=== PATIENT | male | born 1995 | race Caucasian/White ===

== ENCOUNTER 2018-05-12 23:31 | Emergency (ER) | payer BC, SELFPAY ==
[2018-05-12 23:31] VITALS: BP 136/86; PULSE 111; RESP 16; TEMP 36.9; O2SAT 95; BMI 17.2
[2018-05-13] MEDS: Ondansetron 4 MG/2 ML Vial IV (00:14)
[2018-05-13] MEDS: 0.9% Normal Saline 1,000 ML 1000 ML IV (00:14)
[2018-05-13 00:33] LABS: Absolute Lymphocyte Count 0.53 X10^3/ul (0.83-4.51); Absolute Neutrophil Count 4.4 X10^3/uL (2.0-7.7); Basophil# 0.01 X10^3/uL; Basophil% 0.2 % (0-1); Eosinophil# 0.01 X10^3/uL; Eosinophils% 0.2 % (0-5); Hematocrit 33.6 % (40-54); Hemoglobin 10.7 g/dl (13.0-16.5); Lymphocyte # 0.53 X10^3/ul (4.0); Lymphocyte % 9.1 % (19-41); Mean Corp Hgb Conc 31.8 g/gl (32-36); Mean Corpuscular Hgb 27.8 pg (27.0-32.0); Mean Corpuscular Volume 87.3 fL (80-94); Mean Platelet Vol. 7.3 fl (6.2-12.0); Monocyte# 0.86 X10^3/uL; Monocyte% 14.7 % (0-10); Neutrophil # 4.41 X10^3/uL (2.7-7.7); Neutrophil % 75.3 % (47-70); Platelet Count 509 K/mm3 (150-450); RBC Distribution Width CV 14.9 % (11.6-14.6); RBC Distribution Width SD 47.2 fl (35.1-43.9); Red Blood Count 3.85 M/mm3 (4.6-6.2); White Blood Count 5.9 K/mm3 (4.4-11.0)
[2018-05-13 00:34] LABS: POSITIVE COUNT NO; POSITIVE DIFFERENTIAL YES; POSITIVE MORPHOLOGY YES
[2018-05-13 00:35] LABS: Differential Indicated SCAN CRITERIA MET
--- NOTE | 2018-05-13 00:49 | ED.RN ---
PT JUST FINISHED HIS CT DRINK. CT DEPT NOTIFIED
[2018-05-13 00:51] LABS: Anion Gap 8 (5-15); BUN 10 mg/dL (7-18); BUN/Creat Ratio 16.6 RATIO (10-20); Chloride 97 mmol/L (98-107); EST Glomerular Filtration Rate 176 mL/min (>60); Est Glom Filt Rate - Afr Amer 213 mL/min (>60); Estimated Creatinine Clearance 135.38 ml/min; Glucose 115 mg/dL (74-106); Potassium 3.3 mmol/L (3.5-5.1); Sodium Level 135 mmol/L (136-145)
[2018-05-13 01:01] LABS: Lactic Acid 1.4 mmol/L (0.4-2.0)
[2018-05-13 01:07] LABS: Bacteria 0 SEEN /hpf (None Seen); Mucous, Urine 0 SEEN /hpf (<or=2+); Red Blood Cells-Urine 0 SEEN /hpf (0-5); White Blood Cells 0 SEEN /hpf (0-5)
[2018-05-13 01:09] LABS: Color, Urine Yellow (Yellow); Glucose, Dipstick Normal (Normal); Ketone-Dipstick Negative (Negative); Leukocyte Esterase-Dipstick Negative /ul (Negative); Nitrite-Dipstick Negative (Negative); Occult Blood-Urine Negative /ul (Negative); Protein-Dipstick Negative (Negative); Urine Bilirubin Dipstick Negative (Negative); Urine Clarity Clear (Clear); Urine Urobilinogen Normal (Normal)
[2018-05-13 01:16] LABS: Squamous Epithelial Cells - UA 0-5 SEEN /hpf (0-5)
--- NOTE | 2018-05-13 01:30 | CT_ITS ---
STUDY: CT ABDOMEN AND PELVIS WITH CONTRAST REASON FOR EXAM: Male, 22 years old. Lower abdominal pain for 2 days. Nausea and vomiting. History of Crohn's disease. RADIATION DOSAGE (If Supplied By Facility): CTDIvol = ( 9.73 ) mGy, DLP = ( 285.06 ) mGycm TECHNIQUE: Transaxial images were obtained from the dome of the diaphragm to the symphysis pubis with oral contrast. 100ml ml of Isovue 300 contrast was administered. Sagittal and coronal images were reconstructed. Individualized dose optimization techniques were used for this CT. COMPARISON: Abdominal x-ray series 09/28/2004. FINDINGS: The visualized lung bases are unremarkable. The visualized portions of the heart are within normal limits. There is a small amount of abdominal and pelvic ascites. There is a 1.2 cm fat attenuation space occupying lesion in the anterior subcapsular region of the right lobe of the liver, consistent with a lipoma or angiomyolipoma. Otherwise normal liver. Normal gallbladder and extrahepatic biliary system. Normal spleen. Normal pancreas. Normal bilateral adrenal glands. Normal right kidney. Normal left kidney. Normal visualized stomach. The distal ileum is distended, with diameter of 3 cm, probably representing back pressure from the colon, as discussed below. Small bowel otherwise appears normal. There is mural thickening of the mid and distal descending colon and proximal sigmoid colon with surrounding fat infiltration, consistent with inflammatory colitis, probably Crohn's colitis. There is moderate fluid and gaseous distention of the colon proximal to this site, with diameters range up to 7 cm.. The colon is relatively decompressed distal to this site and findings suggest an early or partial colonic obstruction. The appendix is visualized on axial images 44-55 and it appears normal.. Normal abdominal aorta. Normal inferior vena cava. Normal retroperitoneum. Normal urinary bladder. Normal abdominal wall. Normal osseous structures. CT/Abdomen/Pelvis WITH Contrast IMPRESSION: Prominent inflammation of the distal descending colon and proximal sigmoid colon, with associated mural thickening and luminal narrowing, probably representing Crohn's colitis although an acute infectious colitis would remain a possibility. There is associated early or partial colonic obstruction at the level of the descending colon. Mild ascites. N.B. : The above information has been verbally conveyed by Sae Casiano MD to Art Landon, Referring Physician, on 05/13/2018 03:04:07 (ET). Electronically Signed: Sae Casiano MD at 3:04 EDT , Service support , N.B. : The above information has been verbally conveyed by Sae Casiano MD to Art Landon, Referring Physician, on 05/13/2018 03:04:07 (ET).
[2018-05-13 03:07] VITALS: BP 135/95; PULSE 101; RESP 15; TEMP 36.4; O2SAT 95
[2018-05-13] MEDS: Morphine 4 MG/ML Syringe IV (03:42)
[2018-05-13 03:43] VITALS: BP 118/87; PULSE 102; RESP 15; O2SAT 97
--- NOTE | 2018-05-13 03:56 | ED.VISSUMM ---
- ER Visit Summary Date of Service: 05/13/18 Chief Complaint: Abdominal pain History of Present Illness: The patient is a [address] Juarez and Dr. Colmenares. He has a history of Crohn's disease and is. Reports that he has lower abdominal pain that began yesterday. It is gradually gotten worse. It is a cramping continuous pain that waxes and wanes. It is 9 out of 10 at worst and is pain-free currently. Is worsened by food. Is relieved by nothing. Is been nausea and vomited once. No blood in his emesis. Reports that typically he has 6-7 loose bowel movements a day. Today he has had 15-20. There is no blood in his stools. No dysuria or frequency. No fever or chills. Physical Examination: Vitals: Stable. Afebrile. General: Well-nourished and well-developed. Head: Normocephalic atraumatic. Neck: Supple, no lymphadenopathy. No JVD. Nontender. Cardiovascular: Regular rate and rhythm. No murmurs. Respiratory: No respiratory distress. Clear to auscultation bilaterally. Abdominal: Soft, moderate suprapubic and left lower quadrant tenderness to palpation, nondistended, normal bowel sounds. No guarding, rebound, or peritoneal signs. Back: Nontender. Extremities: Nontender, no edema. Skin: Normal color, no rash. Neurologic: Alert and oriented ?3. Cranial nerves II through XII are intact. Normal strength and sensation. Psych: Normal affect. Test Results: CBC is marked for an H&H of 10.7 and 33.6, platelets of 509, segmented neutrophils 75, leukocytes of 9, monocytes of 15. Chem-7 is more for sodium 135, potassium 3.3, chloride 97, glucose 115, calcium 8.0, creatinine is 0.6. Lactic acid is 1.4. Clinical Impression(s) from Imaging Studies Abdomen/Pelvis CT 05/13/18 01:30 IMPRESSION: Prominent inflammation of the distal descending colon and proximal sigmoid colon, with associated mural thickening and luminal narrowing, probably representing Crohn's colitis although an acute infectious colitis would remain a possibility. There is associated early or partial colonic obstruction at the level of the descending colon. Mild ascites. N.B. : The above information has been verbally conveyed by Sae Casiano MD to Art Landon, Referring Physician, on 05/13/2018 03:04:07 (ET). Electronically Signed: Sae Casiano MD at 3:04 EDT , Service support , N.B. : The above information has been verbally conveyed by Sae Casiano MD to Art Landon, Referring Physician, on 05/13/2018 03:04:07 (ET). Emergency Department Course and Treatment: Patient had an IV placed. Is given a liter of normal saline. He was given Zofran, Solu-Medrol, morphine, Cipro, and Flagyl IV. He is resting comfortably. Treatment Plan: Family has asked for transfer to [facility] to see gastroenterology. He was discussed with Dr. Swenson who has accepted him in transfer. Disposition: Transferred in serious condition. Impression: 1. Crohn's colitis. 2. Partial colonic obstruction. This note was generated with [employer] dictation software. It may contain incorrect words, spelling, and punctuation that were not noted in review of the chart prior to signing ED Disposition - Plan for ED Patient: Chief Complaint: Abd Pain Referrals: Brittney Juarez MD [Primary Care Provider] -
--- NOTE | 2018-05-13 03:59 | ED.DCSUM_ITS ---
- ER Visit Summary Date of Service: 05/13/18 Chief Complaint: Abdominal pain History of Present Illness: The patient is a [address] Juarez and Dr. Colmenares. He has a history of Crohn's disease and is. Reports that he has lower abdominal pain that began yesterday. It is gradually gotten worse. It is a cramping continuous pain that waxes and wanes. It is 9 out of 10 at worst and is pain-free currently. Is worsened by food. Is relieved by nothing. Is been nausea and vomited once. No blood in his emesis. Reports that typically he has 6-7 loose bowel movements a day. Today he has had 15-20. There is no blood in his stools. No dysuria or frequency. No fever or chills. Physical Examination: Vitals: Stable. Afebrile. General: Well-nourished and well-developed. Head: Normocephalic atraumatic. Neck: Supple, no lymphadenopathy. No JVD. Nontender. Cardiovascular: Regular rate and rhythm. No murmurs. Respiratory: No respiratory distress. Clear to auscultation bilaterally. Abdominal: Soft, moderate suprapubic and left lower quadrant tenderness to palpation, nondistended, normal bowel sounds. No guarding, rebound, or peritoneal signs. Back: Nontender. Extremities: Nontender, no edema. Skin: Normal color, no rash. Neurologic: Alert and oriented ?3. Cranial nerves II through XII are intact. Normal strength and sensation. Psych: Normal affect. Test Results: CBC is marked for an H&H of 10.7 and 33.6, platelets of 509, segmented neutrophils 75, leukocytes of 9, monocytes of 15. Chem-7 is more for sodium 135, potassium 3.3, chloride 97, glucose 115, calcium 8.0, creatinine is 0.6. Lactic acid is 1.4. Clinical Impression(s) from Imaging Studies Abdomen/Pelvis CT 05/13/18 01:30 IMPRESSION: Prominent inflammation of the distal descending colon and proximal sigmoid colon, with associated mural thickening and luminal narrowing, probably representing Crohn's colitis although an acute infectious colitis would remain a possibility. There is associated early or partial colonic obstruction at the level of the descending colon. Mild ascites. N.B. : The above information has been verbally conveyed by Sae Casiano MD to Art Landon, Referring Physician, on 05/13/2018 03:04:07 (ET). Electronically Signed: Sae Casiano MD at 3:04 EDT , Service support , N.B. : The above information has been verbally conveyed by Sae Casiano MD to Art Landon, Referring Physician, on 05/13/2018 03:04:07 (ET). Emergency Department Course and Treatment: Patient had an IV placed. Is given a liter of normal saline. He was given Zofran, Solu-Medrol, morphine, Cipro, and Flagyl IV. He is resting comfortably. Treatment Plan: Family has asked for transfer to [facility] to see gastroenterology. He was discussed with Dr. Swenson who has accepted him in transfer. Disposition: Transferred in serious condition. Impression: 1. Crohn's colitis. 2. Partial colonic obstruction. This note was generated with [employer] dictation software. It may contain incorrect words, spelling, and punctuation that were not noted in review of the chart prior to signing ED Disposition - Plan for ED Patient: Chief Complaint: Abd Pain Referrals: Brittney Juarez MD [Primary Care Provider] -
[2018-05-13] MEDS: MethylPREDNISolone 125 MG/2 ML Vial IV (04:22)
[2018-05-13] MEDS: Ciprofloxacin 400 MG/200 ML BAG 200 MG IV (04:23)
[2018-05-13 04:34] VITALS: BP 125/85; PULSE 70; RESP 15; O2SAT 96
== END 2018-05-13 05:15 | disposition short-term general hospital (02) ==
LOC: ED 05-13 00:11
PROVIDERS: Emergency Provider Emergency Medicine; Family Provider Internal Medicine; PCP Internal Medicine
DX: K50.918 Crohn's disease, unspecified, with other complication (principal); K56.600 Partial intestinal obstruction, unspecified as to cause; Z79.899 Other long term (current) drug therapy
CPT/HCPCS: 36415; 74177; 80048; 81001; 83605; 85025; 96361; 96365; 96367; 96375; 99285; J7030; J7050; Q9967; J0744; J2405

== ENCOUNTER 2019-02-16 22:55 | Observation (INO) | payer BC, SELFPAY ==
[2019-02-16 22:56] VITALS: BP 126/66; PULSE 97; RESP 16; TEMP 36.7; O2SAT 98; BMI 22.4
[2019-02-16 23:05] VITALS: RESP 19; TEMP 37.3; O2SAT 99
--- NOTE | 2019-02-16 23:13 | ED.VISSUMM ---
- ER Visit Summary Date of Service: 02/16/19 Chief Complaint: Low blood count reportedly anemic History of Present Illness: The patient is a 23 M history of Crohn's. History of anemia. When saw his GI doctor recently had screening labs done and reportedly according to him his hemoglobin was 4.1 and needed to go to the nearest ER. He denies any melena or hematemesis. He has not seen blood mixed with his stool recently. He states he is never needed a transfusion. States he has been tired lately. He is on no blood thinners. Physical Examination: Well-appearing young male. Vital signs are stable and afebrile. Blood pressure is 126/66. Heart rate 97. He does appear to be pale. No distress. HEENT exam pale otherwise unremarkable. Moist weeks memories. Neck nontender no lymphadenopathy. Lungs clear to auscultation bilaterally. Heart regular rhythm no murmur. Rate about 90. Abdomen soft nontender. Normal bowel sounds no peritoneal signs. Patient is moving all 4 extremities. Nontender no edema. Neurologically is awake alert with no focal motor deficits. Test Results: CBC shows hemoglobin of 4.1. Hematocrit 18. Normal white count. Platelet count is 622,000. Electrolytes potassium 3.3. Normal creatinine and gap. Patient has been typed and crossed and will be transfused 4 units. I very spoken to the blood bank myself. Emergency Department Course and Treatment: Screening labs and typed and crossed. Treatment Plan: I spoke to the hospitalist and he will be down evaluate patient for admission. Per the hospitalist request I also spoke to the general surgeon on-call Dr. Jazmín Frederick for consultation tomorrow. Disposition: Admission Impression: Acute on chronic anemia Blood transfusions History of Crohn's disease This note was generated with [employer] dictation software. It may contain incorrect words, spelling, and punctuation that were not noted in review of the chart prior to signing ED Disposition - Plan for ED Patient: Referrals: Brittney Juarez MD [Primary Care Provider] -
[2019-02-16 23:33] LABS: Hematocrit 18.5 % (40-54); Mean Corp Hgb Conc 22.2 g/gl (32-36); Mean Corpuscular Hgb 13.7 pg (27.0-32.0); Mean Corpuscular Volume 61.7 fL (80-94); Mean Platelet Vol. 9.1 fl (6.2-12.0); Platelet Count 622 K/mm3 (150-450); RBC Distribution Width CV 23.5 % (11.6-14.6); RBC Distribution Width SD 48.4 fl (35.1-43.9); White Blood Count 6.1 K/mm3 (4.4-11.0)
[2019-02-16 23:35] LABS: Scan Indicated on CBC? Y/N YES- FLAGS NOTED
[2019-02-16 23:39] LABS: Anion Gap 7 (5-15); BUN 9 mg/dL (7-18); BUN/Creat Ratio 11.3 RATIO (10-20); Calcium,Total 7.9 mg/dL (8.5-10.1); Chloride 106 mmol/L (98-107); Creatinine, Serum 0.79 mg/dL (0.70-1.30); EST Glomerular Filtration Rate 127 mL/min (>60); Est Glom Filt Rate - Afr Amer 153 mL/min (>60); Estimated Creatinine Clearance 132.36 ml/min; Glucose 88 mg/dL (74-106); Potassium 3.3 mmol/L (3.5-5.1); Sodium Level 140 mmol/L (136-145)
[2019-02-16 23:42] LABS: Hemoglobin 4.1 g/dl (13.0-16.5)
--- NOTE | 2019-02-16 23:44 | ED.RN ---
this rn took critical from lab. dr. sloan informed of hemoglobin 4.1.
--- NOTE | 2019-02-16 23:49 | HP.PCM_ITS ---
Problem List (1) Microcytic anemia Status: Acute (2) Crohns disease Status: Chronic History of Present Illness Date of Admission: 02/16/19 Chief Complaint: anemia on outpatient lab The patient is a 23 year old M with a significant history of Crohn's disease who presented with an outpatient lab of hemoglobin of 4.1. Patient went to see his Crohn's doctor, Dr. Mikal Colmenares at [facility]. Patient reported that at the office visit with Dr. Mikal Colmenares lab for hepatitis B was drawn. And also because patient was looking pale lab was drawn to check his hemoglobin. Later on he received a call that his hemoglobin is 4.1 so he should go to the nearest emergency department. Subsequently patient came to our emergency department where his hemoglobin was again found to be 4.1. Patient denied fatigue however his mother reports that patient has been fatigued. He denies any craving for ice or restless legs. Denies any melena; hematochezia or hematemesis. Past Medical History Past Medical History (Chronic Problems): Chronic Problems (Last Updated 02/17/19 @ 01:05 by Renaldo Mckeon MD) Crohns disease (Chronic) Medical History: Medical History (Last Updated 02/17/19 @ 01:05 by Renaldo Mckeon MD) Crohns disease K50.90 Allergies No Known Allergies Allergy (Verified 05/12/18 23:32) Home Medications: Ambulatory Orders Medication Instructions Recorded Adalimumab [Humira Crohn's] 40 mg SQ Q14D 05/13/18 Surgical History: - - His wisdom tooth was pulled out which 3-4 years ago Lives: With Family Smoking Status: Never smoker Alcohol: None - *Family History Maternal History Items: Heart Disease Paternal History Items: - - Iron deficiency anemia requiring blood transfusion. His father had Crohn's disease Review of Systems Constitutional: Reports: Fatigue. Denies: Chills, Fever, Weight Change HEENT: Denies: Head Aches, Sinus Congestion, Sinus Drainage Cardiovascular: Denies: Chest Pain, Palpitations Respiratory: Denies: Cough, Shortness of breath at rest, Sputum production Gastrointestinal: Denies: Abdominal Pain, Nausea, Vomiting Genitourinary: Denies: Dysuria Musculoskeletal: Denies: Joint Pain, Joint Tenderness Skin: Denies: Rash, Wounds Neurological: Denies: Numbness, Tingling, Focal weakness Psychiatric: Denies: Anxiety, Depression, Homicidal Ideations, Suicidal Ideations Hematologic/ Lymphatic: Denies: Easy Bruising, Easy Bleeding VTE Information - Inpt Only VTE Present on Admission: No VTE Mechan Device Prophylaxis: None VTE Pharm Prophylaxis ordered?: No Reason prophylaxis not ordered:: Treatment Not Indicated - Low risk, ambulate. Patient Problems: Active and Suspected Problems (Last Updated 02/17/19 @ 01:05 by Renaldo Mckeon MD) Microcytic anemia (Acute) - Physical Exam General: Alert, Oriented x3, Cooperative HEENT: Atraumatic, PERRLA, EOMI, Normocephalic Neck: Supple, No JVD, Negative Carotid Bruits Lungs: Clear to auscultation, Normal air movement Cardiovascular: Regular rate, No murmurs Abdomen: Bowel Sounds Present, Soft, Non Tender Extremities: No edema, Capillary Refill Less than 3 Seconds Skin: No rashes, No breakdown, - - Patient looks pale Musculoskeletal: No Tenderness to Palpation of Joints or Extremities Neurological: Neuro grossly intact Psych/Mental Status: Normal Affect, Appropriate Vital Signs Temp Pulse Resp BP Pulse Ox 99.1 F 97 19 H 126/66 H 99 02/16/19 23:05 02/16/19 22:56 02/16/19 23:05 02/16/19 22:56 02/16/19 23:05 Oxygen Delivery Method Room Air Weight: 64.9 kg Body Mass Index (BMI) 22.4 Laboratory Tests Past 24 Hrs 02/16/19 02/16/19 02/16/19 23:05 23:05 23:05 WBC 6.1 RBC 3.00 L Hgb 4.1 L* Hct 18.5 L MCV 61.7 L MCH 13.7 L MCHC 22.2 L RDW 23.5 H RDW Differential 48.4 H Plt Count 622 H MPV 9.1 Sodium 140 Potassium 3.3 L Chloride 106 Carbon Dioxide 27.0 Anion Gap 7 BUN 9 Creatinine 0.79 Estim Creat Clear Calc 132.36 Est GFR (MDRD) Af Amer 153 Est GFR (MDRD) Non-Af 127 BUN/Creatinine Ratio 11.3 Glucose 88 Calcium 7.9 L Blood Type Pending Antibody Screen Pending Crossmatch See Detail Assessment/Plan All Active Problems (Last Updated 02/17/19 @ 01:05 by Renaldo Mckeon MD) Microcytic anemia (Acute) The patient is a 23 year old M with a significant history of Crohn's disease who presented with an outpatient lab of hemoglobin of 4.1; and a repeat at the ED also showed an hemoglobin level of 4.1. Microcytic anemia Patient found to have hemoglobin of 4.1. Hematocrit of 18.5. MCV of 61.7 low; and MCH of 13.7 low. Emergency department doctor ordered 4 units of blood; transfuse. Nursing communication to check H&H after administration of 4 units of blood ordered from the ED. Etiology is unclear at this time. Iron workup including iron level, iron saturation, total iron binding capacity ordered. Reticulocyte ordered. Vitamin B12 and folate level ordered. LDH and haptoglobin ordered. Protonix 40 mg twice daily ordered. FOBT ordered. GI consulted. Thrombocytosis On admission his platelet count was 622 Likely reactive from severe anemia. Crohn's disease Patient takes Humira every 2 weeks. It is due on 02/24/2019. Continue outpatient follow-up. Hypokalemia: replaced Trend BMP Pseudo-Hypocalcemia His calcium level was 7.9. Albumin level was 2.9 Corrected calcium for albumin is 8.8. However patient is at risk for hypocalcemia from chelation of calcium with blood transfusion. Trend BMP DVT prophylaxis Low risk Ambulate. Code Visit Inpatient E&M: 40633 Init Hosp L3
[2019-02-16 23:52] LABS: Differential Comment SCANNED
[2019-02-17] VITALS (23 sets, daily range): BP systolic 116–161; BP diastolic 60–77; PULSE 65–98; RESP 16–19; TEMP 36.6–37.2; O2SAT 96–100; BMI 21.5; BMI 22.4
[2019-02-17 00:08] LABS: Albumin, Serum 2.9 g/dL (3.2-5.0)
[2019-02-17 01:02] LABS: Ferritin 1 ng/mL (26-388); Iron 10 ug/dL (65-175); Iron Binding Capacity,Total 295 ug/dL (250-450); LDH 117 U/L (87-241); PERCENT IRON SATURATION 3.4 % (15.0-55.0)
[2019-02-17 02:22] LABS: Immature Platelet Fraction 2.3 % (1.0-7.9); RET-HE 11.8 pg (30-35); Reticulocyte Count 3.49 % (0.5-1.5)
--- NOTE | 2019-02-17 09:47 | PCM.CONS.GEN ---
Reason for Consult Date of Consultation: 02/17/19 History of Present Illness: The patient is a 23 year old M sent to the ER by his GI doctor Dr. Alva as his hemoglobin came back at 4.1 on a check yesterday morning. Patient denies any abdominal pain nausea vomiting fevers or chills. He does have a history of Crohn's disease which he is followed by Dr. Colmenares for. His last flareup was in May. Patient was diagnosed about 9 years ago and states he has had 3-4 flareups during that time. He has been on a long steroid taper which ended the end of last month since May. Is also on Humira for his Crohn's disease. Patient denies any abdominal pain states he has diarrhea/formed bowel movements daily which has been his normal since May. Denies any blood in states they are light brown in color. Patient states his last colonoscopy was likely about 3 years ago. Hemoglobin on admit was 4.1 patient is currently getting total of 4 units packed red blood cells he is currently on his third bag. His last blood work from here showed a hemoglobin of 10.7 which was back in May 2018. Patient has never had any abdominal surgeries for his Crohn's disease. Past Medical History Past Medical History (Chronic Problems): Chronic Problems (Last Updated 02/17/19 @ 01:05 by Renaldo Mckeon MD) Crohns disease (Chronic) Medical History: Medical History (Last Updated 02/17/19 @ 01:05 by Renaldo Mckeon MD) Crohns disease K50.90 Allergies No Known Allergies Allergy (Verified 05/12/18 23:32) Home Medications: Ambulatory Orders Medication Instructions Recorded Adalimumab [Humira Crohn's] 40 mg SQ Q14D 05/13/18 Surgical History: - - His wisdom tooth was pulled out which 3-4 years ago Lives: With Family Smoking Status: Never smoker Alcohol: None - *Family History Maternal History Items: Heart Disease Paternal History Items: - - Iron deficiency anemia requiring blood transfusion. His father had Crohn's disease Review of Systems Constitutional: Denies: Anorexia, Chills, Fever Eyes: Denies: Blurred vision HEENT: Denies: Difficulty Swallowing Cardiovascular: Denies: Chest Pain Respiratory: Denies: Shortness of Breath Gastrointestinal: Denies: Abdominal Pain, Hematemesis, Hematochezia, Nausea, Melena, Vomiting Genitourinary: Denies: Dysuria Skin: Denies: Jaundice Neurological: Denies: Balance problems Psychiatric: Denies: Anxiety, Depression Hematologic/ Lymphatic: Denies: Easy Bruising, Easy Bleeding Patient Problems: Active and Suspected Problems (Last Updated 02/17/19 @ 01:05 by Renaldo Mckeon MD) Microcytic anemia (Acute) - Physical Exam General: Alert, Oriented x3, Cooperative, No apparent distress HEENT: Atraumatic Lungs: Normal air movement Cardiovascular: Regular rate Abdomen: Soft, Non Tender - no ps, Non-Distended Extremities: No clubbing, No cyanosis, No edema Neurological: Cranial nerves II-XII grossly intact Psych/Mental Status: Normal Affect Vital Signs Temp Pulse Resp BP Pulse Ox 98.3 F 78 16 119/71 98 02/17/19 09:15 02/17/19 09:15 02/17/19 09:15 02/17/19 09:15 02/17/19 09:15 Oxygen Flow Rate (L/min) 2 Oxygen Delivery Method Room Air Weight: 137 lb 12.623 oz Body Mass Index (BMI) 21.5 Intake and Output for Last 24 Hours 02/15/19 02/16/19 02/17/19 23:59 23:59 23:59 Intake Total 400 / 400 Balance 400 / 400 Microbiology Past 72 Hours 02/17/19 05:20 Stool Occult Blood (DANG) - Final Stool Occult Blood Positive Laboratory Tests Past 24 Hrs 02/16/19 02/16/19 02/16/19 00:12 00:12 00:12 WBC RBC Hgb Hct MCV MCH MCHC RDW RDW Differential Plt Count MPV Differential Comment Diff Path Review Immature Plt Fraction Retic Count Immature Retic Fraction Retic Hgb Equivalent Haptoglobin Pending Sodium Potassium Chloride Carbon Dioxide Anion Gap BUN Creatinine Estim Creat Clear Calc Est GFR (MDRD) Af Amer Est GFR (MDRD) Non-Af BUN/Creatinine Ratio Glucose Calcium Iron TIBC Iron Saturation Transferrin Pending Ferritin Lactate Dehydrogenase Albumin Vitamin B12 Pending Folate Blood Type Antibody Screen Crossmatch 02/16/19 02/16/19 02/16/19 23:05 23:05 23:05 WBC 6.1 RBC 3.00 L Hgb 4.1 L* Hct 18.5 L MCV 61.7 L MCH 13.7 L MCHC 22.2 L RDW 23.5 H RDW Differential 48.4 H Plt Count 622 H MPV 9.1 Differential Comment SCANNED Diff Path Review May foll Immature Plt Fraction Retic Count Immature Retic Fraction Retic Hgb Equivalent Haptoglobin Sodium 140 Potassium 3.3 L Chloride 106 Carbon Dioxide 27.0 Anion Gap 7 BUN 9 Creatinine 0.79 Estim Creat Clear Calc 132.36 Est GFR (MDRD) Af Amer 153 Est GFR (MDRD) Non-Af 127 BUN/Creatinine Ratio 11.3 Glucose 88 Calcium 7.9 L Iron TIBC Iron Saturation Transferrin Ferritin Lactate Dehydrogenase Albumin Vitamin B12 Folate Blood Type O NEGATIVE Antibody Screen NEGATIVE Crossmatch See Detail 02/16/19 02/16/19 02/16/19 23:05 23:05 23:05 WBC RBC Hgb Hct MCV MCH MCHC RDW RDW Differential Plt Count MPV Differential Comment Diff Path Review Immature Plt Fraction Retic Count Immature Retic Fraction Retic Hgb Equivalent Haptoglobin Sodium Potassium Chloride Carbon Dioxide Anion Gap BUN Creatinine Estim Creat Clear Calc Est GFR (MDRD) Af Amer Est GFR (MDRD) Non-Af BUN/Creatinine Ratio Glucose Calcium Iron 10 L TIBC 295 Iron Saturation 3.4 L Transferrin Ferritin 1 L Lactate Dehydrogenase 117 Albumin 2.9 L Vitamin B12 Folate 14.40 Blood Type Antibody Screen Crossmatch See Detail 02/16/19 23:05 WBC RBC Hgb Hct MCV MCH MCHC RDW RDW Differential Plt Count MPV Differential Comment Diff Path Review Immature Plt Fraction 2.3 Retic Count 3.49 H Immature Retic Fraction 17.00 H Retic Hgb Equivalent 11.8 L Haptoglobin Sodium Potassium Chloride Carbon Dioxide Anion Gap BUN Creatinine Estim Creat Clear Calc Est GFR (MDRD) Af Amer Est GFR (MDRD) Non-Af BUN/Creatinine Ratio Glucose Calcium Iron TIBC Iron Saturation Transferrin Ferritin Lactate Dehydrogenase Albumin Vitamin B12 Folate Blood Type Antibody Screen Crossmatch Assessment/Plan All Active Problems (Last Updated 02/17/19 @ 01:05 by Renaldo Mckeon MD) Microcytic anemia (Acute) 23-year-old male with anemia, Crohn's disease, positive fecal occult blood test 1. Anemia?patient is currently on his third out of 4 bags of packed red blood cells as his hemoglobin on admit was 4.1. 2. Crohn's disease/positive fecal occult blood test. Did offer patient colonoscopy to evaluate for his anemia is likely it is a GI source especially with his history of Crohn's disease. Patient does follow with Dr. Colmenares. He states his last flareup was last May and he just finished a taper of prednisone the end of last month from that flareup. He is currently on Humira for Crohn's disease. Currently patient's vital signs are all stable even with his hemoglobin of 4.1. Currently patient and his mother would prefer to talk with Dr. Colmenares's office tomorrow morning to see if they would possibly be able to do close follow-up colonoscopy since he has been following him for years for his Crohn's disease. Discussed with patient that if he is unable to get him in quickly we could possibly do the prep on Monday and do colonoscopy on Monday. Patient's mom were agreeable with plan. Okay for clear liquids today. Jackie Frederick M.D. Pager: [phone] [facility] [place] [facility] [address] [place] [address], [facility], [address] [place] [address] Office: [phone] Code Visit Inpatient E&M: 65849 Init Hosp L2
--- NOTE | 2019-02-17 11:06 | PN_ITS ---
Patient Problems: Active and Suspected Problems (Last Updated 02/17/19 @ 01:05 by Renaldo Mckeon MD) Microcytic anemia (Acute) Subjective: Feeling about the same as when he came in, still tired. Denies any shortness of breath or chest pain Vitals/I&O's: Vital Signs Temp Pulse Resp BP Pulse Ox 98.2 F 67 16 124/76 H 98 02/17/19 10:35 02/17/19 10:35 02/17/19 10:35 02/17/19 10:35 02/17/19 10:35 Oxygen Flow Rate (L/min) 2 Oxygen Delivery Method Room Air Weight: 137 lb 12.623 oz Body Mass Index (BMI) 21.5 Intake and Output for Last 24 Hours 02/15/19 02/16/19 02/17/19 23:59 23:59 23:59 Intake Total 800 / 800 Balance 800 / 800 General: Alert, Oriented x3, Cooperative, No apparent distress HEENT: Atraumatic, PERRLA, EOMI, Normocephalic, - - Pale conjunctiva Oral: Dry Mucosa Neck: Supple, No JVD, Trachea Midline Lungs: Clear to auscultation, Normal air movement, No rhonchi, No wheeze, No rales Cardiovascular: Regular rate, Regular Rhythm, Normal S1, Normal S2, No murmurs Abdomen: Soft, Non Tender, Non-Distended, No Hepato-splenomegaly Extremities: No edema, Capillary Refill Less than 3 Seconds Skin: No rashes, No breakdown, - - Very pale Neurological: Neuro grossly intact, Sensory exam intact to light touch and pain Psych/Mental Status: Normal Affect, Appropriate Microbiology Past 72 Hours 02/17/19 05:20 Stool Stool Occult Blood (DANG) - Final Occult Blood Positive Laboratory Results 02/16/19 00:12: Vitamin B12 Pending 02/16/19 00:12: Transferrin Pending 02/16/19 00:12: Haptoglobin Pending 02/16/19 23:05: WBC 6.1, RBC 3.00 L, Hgb 4.1 L*, Hct 18.5 L, MCV 61.7 L, MCH 13.7 L, MCHC 22.2 L, RDW 23.5 H, RDW Differential 48.4 H, Plt Count 622 H, MPV 9.1, Differential Comment SCANNED, Diff Path Review March foll 02/16/19 23:05: Sodium 140, Potassium 3.3 L, Chloride 106, Carbon Dioxide 27.0, Anion Gap 7, BUN 9, Creatinine 0.79, Estim Creat Clear Calc 132.36, Est GFR (MDRD) Af Amer 153, Est GFR (MDRD) Non-Af 127, BUN/Creatinine Ratio 11.3, Glucose 88, Calcium 7.9 L 02/16/19 23:05: Blood Type O NEGATIVE, Antibody Screen NEGATIVE, Crossmatch See Detail 02/16/19 23:05: Albumin 2.9 L 02/16/19 23:05: Iron 10 L, TIBC 295, Iron Saturation 3.4 L, Ferritin 1 L, Lactate Dehydrogenase 117, Folate 14.40 02/16/19 23:05: Crossmatch See Detail 02/16/19 23:05: Immature Plt Fraction 2.3, Retic Count 3.49 H, Immature Retic Fraction 17.00 H, Retic Hgb Equivalent 11.8 L Current Medications Pantoprazole Sodium 40 mg/ (Sodium Chloride) 110 mls @ 330 mls/hr IV Q12 SHANTANU Last Admin: 02/17/19 03:55 Dose: 330 mls/hr Magnesium Hydroxide (Milk Of Magnesia) 30 ml PO DAILY PRN PRN Reason: Constipation Ondansetron HCl (Zofran) 4 mg IV Q8H PRN PRN PRN Reason: NAUSEA Medical Necessity - Tobacco Use Smoking Status: Never smoker Assessment/Plan All Active Problems (Last Updated 02/17/19 @ 01:05 by Renaldo Mckeon MD) Microcytic anemia (Acute) 1. Crohn's disease/chronic blood loss anemia -He has significant flare in May and has been on steroids and a prolonged s teroid taper ever since. -He completed his steroids last month -He has been asymptomatic other than some fatigue with this blood loss -Globin on admission was 4.1 -Fecal occult is positive -He is receiving 4 units of packed red blood cells, will recheck hemoglobin in the morning if still below 8 can transfuse another 2 units -He would like to see his automatic stacker as an outpatient this week to have a colonoscopy, will plan to discharge tomorrow if hemoglobin stable -Current microcytic anemia workup is pending -Continue with PPI twice daily -Appreciate general surgery input 2. Thrombocytosis -Unknown significance -Repeat CBC in the morning for monitoring DVT: Ambulate Code Visit Inpatient E&M: 82915 Subs Hosp L2
[2019-02-17 13:29] LABS: Hemoglobin 8.2 g/dl (13.0-16.5)
[2019-02-17] MEDS: 0.9% NaCl Peripheral Flush Adult/Peds IV (22:12)
[2019-02-18 04:00] VITALS: BP 120/80; PULSE 72; RESP 18; TEMP 36.7; O2SAT 96
[2019-02-18 05:50] LABS: Anion Gap 6 (5-15); BUN 11 mg/dL (7-18); Calcium,Total 7.8 mg/dL (8.5-10.1); Chloride 110 mmol/L (98-107); Creatinine, Serum 0.73 mg/dL (0.70-1.30); EST Glomerular Filtration Rate 139 mL/min (>60); Est Glom Filt Rate - Afr Amer 168 mL/min (>60); Estimated Creatinine Clearance 137.94 ml/min; Glucose 85 mg/dL (74-106); Potassium 3.5 mmol/L (3.5-5.1); Sodium Level 142 mmol/L (136-145)
[2019-02-18 05:53] LABS: Absolute Lymphocyte Count 1.18 X10^3/ul (0.83-4.51); Absolute Neutrophil Count 4.3 X10^3/uL (2.0-7.7); Basophil# 0.03 X10^3/uL; Basophil% 0.5 % (0-1); Eosinophil# 0.13 X10^3/uL; Hematocrit 29.2 % (40-54); Hemoglobin 8.4 g/dl (13.0-16.5); Lymphocyte # 1.18 X10^3/ul (4.0); Lymphocyte % 17.8 % (19-41); Mean Corp Hgb Conc 28.8 g/gl (32-36); Mean Corpuscular Hgb 20.3 pg (27.0-32.0); Mean Corpuscular Volume 70.7 fL (80-94); Mean Platelet Vol. 8.7 fl (6.2-12.0); Monocyte# 0.95 X10^3/uL; Monocyte% 14.3 % (0-10); Neutrophil # 4.32 X10^3/uL (2.7-7.7); Neutrophil % 65.1 % (47-70); Platelet Count 353 K/mm3 (150-450); RBC Distribution Width CV 26.4 % (11.6-14.6); RBC Distribution Width SD 67.6 fl (35.1-43.9); Red Blood Count 4.13 M/mm3 (4.6-6.2); White Blood Count 6.6 K/mm3 (4.4-11.0)
[2019-02-18 06:09] LABS: Differential Indicated SCAN CRITERIA MET; POSITIVE COUNT NO; POSITIVE DIFFERENTIAL NO; POSITIVE MORPHOLOGY YES
[2019-02-18 06:28] LABS: Absolute Nucleated RBC Count 0.08 10^3/uL (0-5); Anisocytosis 3+; Differential Comment SCANNED; Hypochromasia 3+; Macrocytosis 2+; Microcytosis 2+; NRBC Flagged by Analyzer 1.2 % (0-5); Ovalocyte 2+; Polychromasia 1+
[2019-02-18 06:29] LABS: Schistocytes 1+; Tear Drop Cell RARE
[2019-02-18] MEDS: 0.9% NaCl Peripheral Flush Adult/Peds IV ×3 (08:05→17:41)
--- NOTE | 2019-02-18 08:17 | PCM.PN.SRG ---
Patient Problems: Active and Suspected Problems (Last Updated 02/17/19 @ 01:05 by Renaldo Mckeon MD) Microcytic anemia (Acute) Subjective: Patient denies any abdominal pains having normal bowel movements with patient states her light brown, currently on the phone with Dr. Colmenares's office, hemoglobin 8.4 after 4 units from 4.1. - Physical Exam General: Alert, Oriented x3, Cooperative, No apparent distress HEENT: Atraumatic Lungs: Normal air movement Cardiovascular: Regular rate Abdomen: Soft, Non Tender - No peritoneal signs, Non-Distended Extremities: No clubbing, No cyanosis, No edema Neurological: Cranial nerves II-XII grossly intact Psych/Mental Status: Normal Affect Vital Signs Temp Pulse Resp BP Pulse Ox 98.1 F 72 18 120/80 96 02/18/19 04:00 02/18/19 04:00 02/18/19 04:00 02/18/19 04:00 02/18/19 04:00 Oxygen Flow Rate (L/min) 2 Oxygen Delivery Method Room Air Weight: 137 lb 12.623 oz Body Mass Index (BMI) 21.5 Intake and Output for Last 24 Hours 02/16/19 02/17/19 02/18/19 23:59 23:59 23:59 Intake Total 1660 / 1660 220 / 220 Balance 1660 / 1660 220 / 220 Microbiology Past 72 Hours 02/17/19 05:20 Stool Occult Blood (DANG) - Final Stool Occult Blood Positive Laboratory Tests Past 24 Hrs 02/16/19 02/16/19 02/17/19 23:05 23:05 13:20 WBC RBC Hgb 8.2 L Hct 28.0 L MCV MCH MCHC RDW RDW Differential Plt Count MPV Immature Gran % (Auto) Neut % (Auto) Lymph % (Auto) [place] % (Auto) Eos % (Auto) Baso % (Auto) Absolute Neuts (auto) Absolute Lymphs (auto) Total Counted Nucleated RBC % Differential Comment Diff Path Review Polychromasia Hypochromasia Anisocytosis Microcytosis Macrocytosis Tear Drop Cells Ovalocytes Schistocytes Absolute Retic Sodium Potassium Chloride Carbon Dioxide Anion Gap BUN Creatinine Estim Creat Clear Calc Est GFR (MDRD) Af Amer Est GFR (MDRD) Non-Af BUN/Creatinine Ratio Glucose Calcium Crossmatch See Detail See Detail 02/18/19 02/18/19 05:08 05:08 WBC 6.6 RBC 4.13 L Hgb 8.4 L Hct 29.2 L MCV 70.7 L MCH 20.3 L MCHC 28.8 L RDW 26.4 H RDW Differential 67.6 H Plt Count 353 MPV 8.7 Immature Gran % (Auto) 0.300 Neut % (Auto) 65.1 Lymph % (Auto) 17.8 L [place] % (Auto) 14.3 H Eos % (Auto) 2.0 Baso % (Auto) 0.5 Absolute Neuts (auto) 4.3 Absolute Lymphs (auto) 1.18 Total Counted Not Reportable Nucleated RBC % 1.2 Differential Comment SCANNED Diff Path Review May foll Polychromasia 1+ Hypochromasia 3+ Anisocytosis 3+ Microcytosis 2+ Macrocytosis 2+ Tear Drop Cells RARE Ovalocytes 2+ Schistocytes 1+ Absolute Retic 0.08 Sodium 142 Potassium 3.5 Chloride 110 H Carbon Dioxide 26.0 Anion Gap 6 BUN 11 Creatinine 0.73 Estim Creat Clear Calc 137.94 Est GFR (MDRD) Af Amer 168 Est GFR (MDRD) Non-Af 139 BUN/Creatinine Ratio 15.0 Glucose 85 Calcium 7.8 L Crossmatch Medical Necessity - Tobacco Use Smoking Status: Never smoker Assessment/Plan All Active Problems (Last Updated 02/17/19 @ 01:05 by Renaldo Mckeon MD) Microcytic anemia (Acute) 23-year-old male with anemia, Crohn's disease, positive fecal occult blood test 1. Anemia?patient's hemoglobin did respond appropriately and is at 8.4 after 4 units. Patient's vital signs have remained stable throughout. 2. Crohn's disease/positive fecal occult blood test. Patient is currently talk with Dr. Colmenares's office see if he is able to get in soon since patient is stable would be reasonable for an outpatient colonoscopy. Due to patient's long-standing relationship with Dr. Alva due to his Crohn's disease he would prefer if possible to have his colonoscopy done with him. Patient will let us know if he is able to get in soon not because we could plan for prep today and colonoscopy tomorrow if not. Jackie Frederick M.D. Pager: [phone] [facility] [address] [place] [address], Outpatient [facility]ilion, [address] [place] [id number] Office: [phone] Code Visit Inpatient E&M: [id number] Subs Hosp L1
--- NOTE | 2019-02-18 08:22 | PN.SURG_ITS ---
Patient Problems: Active and Suspected Problems (Last Updated 02/17/19 @ 01:05 by Renaldo Mckeon MD) Microcytic anemia (Acute) Subjective: Patient denies any abdominal pains having normal bowel movements with patient states her light brown, currently on the phone with Dr. Colmenares's office, hemoglobin 8.4 after 4 units from 4.1. - Physical Exam General: Alert, Oriented x3, Cooperative, No apparent distress HEENT: Atraumatic Lungs: Normal air movement Cardiovascular: Regular rate Abdomen: Soft, Non Tender - No peritoneal signs, Non-Distended Extremities: No clubbing, No cyanosis, No edema Neurological: Cranial nerves II-XII grossly intact Psych/Mental Status: Normal Affect Vital Signs Temp Pulse Resp BP Pulse Ox 98.1 F 72 18 120/80 96 02/18/19 04:00 02/18/19 04:00 02/18/19 04:00 02/18/19 04:00 02/18/19 04:00 Oxygen Flow Rate (L/min) 2 Oxygen Delivery Method Room Air Weight: 137 lb 12.623 oz Body Mass Index (BMI) 21.5 Intake and Output for Last 24 Hours 02/16/19 02/17/19 02/18/19 23:59 23:59 23:59 Intake Total 1660 / 1660 220 / 220 Balance 1660 / 1660 220 / 220 Microbiology Past 72 Hours 02/17/19 05:20 Stool Occult Blood (DANG) - Final Stool Occult Blood Positive Laboratory Tests Past 24 Hrs 02/16/19 02/16/19 02/17/19 23:05 23:05 13:20 WBC RBC Hgb 8.2 L Hct 28.0 L MCV MCH MCHC RDW RDW Differential Plt Count MPV Immature Gran % (Auto) Neut % (Auto) Lymph % (Auto) [place] % (Auto) Eos % (Auto) Baso % (Auto) Absolute Neuts (auto) Absolute Lymphs (auto) Total Counted Nucleated RBC % Differential Comment Diff Path Review Polychromasia Hypochromasia Anisocytosis Microcytosis Macrocytosis Tear Drop Cells Ovalocytes Schistocytes Absolute Retic Sodium Potassium Chloride Carbon Dioxide Anion Gap BUN Creatinine Estim Creat Clear Calc Est GFR (MDRD) Af Amer Est GFR (MDRD) Non-Af BUN/Creatinine Ratio Glucose Calcium Crossmatch See Detail See Detail 02/18/19 02/18/19 05:08 05:08 WBC 6.6 RBC 4.13 L Hgb 8.4 L Hct 29.2 L MCV 70.7 L MCH 20.3 L MCHC 28.8 L RDW 26.4 H RDW Differential 67.6 H Plt Count 353 MPV 8.7 Immature Gran % (Auto) 0.300 Neut % (Auto) 65.1 Lymph % (Auto) 17.8 L [place] % (Auto) 14.3 H Eos % (Auto) 2.0 Baso % (Auto) 0.5 Absolute Neuts (auto) 4.3 Absolute Lymphs (auto) 1.18 Total Counted Not Reportable Nucleated RBC % 1.2 Differential Comment SCANNED Diff Path Review May foll Polychromasia 1+ Hypochromasia 3+ Anisocytosis 3+ Microcytosis 2+ Macrocytosis 2+ Tear Drop Cells RARE Ovalocytes 2+ Schistocytes 1+ Absolute Retic 0.08 Sodium 142 Potassium 3.5 Chloride 110 H Carbon Dioxide 26.0 Anion Gap 6 BUN 11 Creatinine 0.73 Estim Creat Clear Calc 137.94 Est GFR (MDRD) Af Amer 168 Est GFR (MDRD) Non-Af 139 BUN/Creatinine Ratio 15.0 Glucose 85 Calcium 7.8 L Crossmatch Medical Necessity - Tobacco Use Smoking Status: Never smoker Assessment/Plan All Active Problems (Last Updated 02/17/19 @ 01:05 by Renaldo Mckeon MD) Microcytic anemia (Acute) 23-year-old male with anemia, Crohn's disease, positive fecal occult blood test 1. Anemia?patient's hemoglobin did respond appropriately and is at 8.4 after 4 units. Patient's vital signs have remained stable throughout. 2. Crohn's disease/positive fecal occult blood test. Patient is currently talk with Dr. Colmenares's office see if he is able to get in soon since patient is stable would be reasonable for an outpatient colonoscopy. Due to patient's long-standing relationship with Dr. Alva due to his Crohn's disease he would prefer if possible to have his colonoscopy done with him. Patient will let us know if he is able to get in soon not because we could plan for prep today and colonoscopy tomorrow if not. Jackie Frederick M.D. Pager: [phone] [facility] [address] [place] [address], Outpatient Pavilion, [address] [place] [address] Office: [phone] Code Visit Inpatient E&M: [id number] Subs Hosp L1
[2019-02-18 08:38] LABS: Vitamin B12 292 pg/mL (211-911)
--- NOTE | 2019-02-18 09:22 | PCM.PROGNOTE ---
Subjective: The patient is a 23-year-old male with a past medical history of Crohn's disease (on Humira and a steroid taper which ended last month) who presented to the emergency department at [facility] on 02/16/2019 because of a hemoglobin of 4.1 on outpatient labs ordered by Dr. Mikal Colmenares. Vital signs in the emergency department were temperature 98, pulse rate 97, blood pressure 126/66, respiratory rate 16 and he was 98% saturated on room air. Hemoglobin was 4.1 with an MCV of 61.7 and an RDW of 23.5. He had thrombocytosis with a platelet count of 622,000. WBC count was within normal limits. Ferritin was 1. He was admitted to the hospital and transfused with 4 units of packed red blood cells. Hemoccult stool was positive. He denied abdominal pain, nausea, vomiting or diarrhea. His last endoscopy was in 2015. Dr. Frederick was consulted and she has contacted Dr. Colmenares's office to see if the pt can be scheduled for an OP endoscopy by Dr. Alva in the near future. Hemoglobin is stable at 8.4 following transfusion of 4 units of packed red blood cells. Vital signs are stable and he is asymptomatic. Objective: PHYSICAL EXAM: GENERAL: alert, oriented X 3, Cooperative, NAD, somewhat pale ORAL: moist mucosa, no mucosal lesions NECK: No JVD, supple, trachea midline LUNGS: CTA, symmetric chest expansion HEART: RRR, Normal S1 and S2, no rub, no gallop ABDOMEN: soft, NT, ND, BS present, no guarding with palpation EXTREMITIES: no edema, no cyanosis, no calf tenderness SKIN: No rashes, no breakdown NEUROLOGIC: no focal neurologic deficits PSYCH: appropriate, normal affect, pleasant - Physical Exam Vital Signs Temp Pulse Resp BP Pulse Ox 98.1 F 72 18 120/80 96 02/18/19 04:00 02/18/19 04:00 02/18/19 04:00 02/18/19 04:00 02/18/19 04:00 Oxygen Flow Rate (L/min) 2 Oxygen Delivery Method Room Air Weight: 137 lb 12.623 oz Body Mass Index (BMI) 21.5 Intake and Output for Last 24 Hours 02/16/19 02/17/19 02/18/19 23:59 23:59 23:59 Intake Total 1660 / 1660 220 / 220 Balance 1660 / 1660 220 / 220 Microbiology Past 72 Hours 02/17/19 05:20 Stool Occult Blood (DANG) - Final Stool Occult Blood Positive Laboratory Tests Past 24 Hrs 02/16/19 02/16/19 02/17/19 00:12 23:05 13:20 WBC RBC Hgb 8.2 L Hct 28.0 L MCV MCH MCHC RDW RDW Differential Plt Count MPV Immature Gran % (Auto) Neut % (Auto) Lymph % (Auto) [place] % (Auto) Eos % (Auto) Baso % (Auto) Absolute Neuts (auto) Absolute Lymphs (auto) Total Counted Nucleated RBC % Differential Comment Diff Path Review Polychromasia Hypochromasia Anisocytosis Microcytosis Macrocytosis Tear Drop Cells Ovalocytes Schistocytes Absolute Retic Sodium Potassium Chloride Carbon Dioxide Anion Gap BUN Creatinine Estim Creat Clear Calc Est GFR (MDRD) Af Amer Est GFR (MDRD) Non-Af BUN/Creatinine Ratio Glucose Calcium Vitamin B12 292 Crossmatch See Detail 02/18/19 02/18/19 05:08 05:08 WBC 6.6 RBC 4.13 L Hgb 8.4 L Hct 29.2 L MCV 70.7 L MCH 20.3 L MCHC 28.8 L RDW 26.4 H RDW Differential 67.6 H Plt Count 353 MPV 8.7 Immature Gran % (Auto) 0.300 Neut % (Auto) 65.1 Lymph % (Auto) 17.8 L Yell % (Auto) 14.3 H Eos % (Auto) 2.0 Baso % (Auto) 0.5 Absolute Neuts (auto) 4.3 Absolute Lymphs (auto) 1.18 Total Counted Not Reportable Nucleated RBC % 1.2 Differential Comment SCANNED Diff Path Review May foll Polychromasia 1+ Hypochromasia 3+ Anisocytosis 3+ Microcytosis 2+ Macrocytosis 2+ Tear Drop Cells RARE Ovalocytes 2+ Schistocytes 1+ Absolute Retic 0.08 Sodium 142 Potassium 3.5 Chloride 110 H Carbon Dioxide 26.0 Anion Gap 6 BUN 11 Creatinine 0.73 Estim Creat Clear Calc 137.94 Est GFR (MDRD) Af Amer 168 Est GFR (MDRD) Non-Af 139 BUN/Creatinine Ratio 15.0 Glucose 85 Calcium 7.8 L Vitamin B12 Crossmatch Medical Necessity - Tobacco Use Smoking Status: Never smoker Assessment/Plan All Active Problems (Last Updated 02/17/19 @ 01:05 by Renaldo Mckeon MD) Heme + stool (Acute) Microcytic anemia (Acute) Impressions 1. Severe iron deficiency anemia-suspect secondary to chronic GI blood loss 2. Crohn's disease 3. Thrombocytosis-likely secondary to iron deficiency Iron sucrose 200 mg IV today. We will attempt to reach Dr. Colmenares to see if he will be able to schedule Richard for an outpatient colonoscopy within the next few weeks. We will discharge on an iron supplement to be taken with vitamin C and also on a PPI.
[2019-02-18 10:04] VITALS: BP 117/74; PULSE 64; RESP 18; TEMP 36.7; O2SAT 98
--- NOTE | 2019-02-18 11:27 | CASEMGMT ---
MEL BREAUX assessment: Face to Face with patient for initial transition planning/care coordination assessment. MEL BREAUX introduced self and role at [facility], pt voices understanding and consents to assessment at this time. Pt is sitting up in bed in no distress at this time. Pt is A/Ox4 at this time and answers all questions appropriately at this time. Care providers, pharmacy, and demographics verified at this time. PCP: Larry Specialists: OUSMANE Colmenares Preferred [facility]acy: [facility] Insurance: [employer] Prescription Benefit: [employer] Living Will/HPOA: Pt states does not have LW/HPOA and declines info at this time. LNOK: Hayley Parker, mother; Lexi Parker, father Living Arrangements: Pt states lives with parents in 1 story home and states no concerns at home at this time. Pt states is normally independent with ADL's. Transportation: Pt states drives self and states no transportation concerns at this time. DME/HHC: Pt states does not have any current DME and denies the need for any at this time. Pt states no hx of HHC or SNF at this time. Pt states no concerns with going home at time of discharge. 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 Pt states does not smoke or drink ETOH. Pt states no further concerns/needs at this time. CM to follow for any further discharge planning/needs. Advised pt to ask for CM if any further questions/concerns/needs arise, voices understanding. Pt Goal: Home Plan: [place] MEL [place]AUX
[2019-02-18 11:43] LABS: Pathologist Review Reviewed
[2019-02-18 16:00] VITALS: BP 126/85; PULSE 68; RESP 16; TEMP 36.9; O2SAT 96
--- NOTE | 2019-02-18 17:19 | DCINST_ITS ---
- Discharge Diagnoses Current Active Problems: Current Active and Chronic Problems (Last Updated 02/17/19 @ 01:05 by Renaldo Mckeon MD) Microcytic anemia (Acute) Crohns disease (Chronic) You will use the following diet at home:: Other - try and eat a lot of foods that are high in iron Your food should be the consistency of: Regular Your liquids should be the consistency of: Regular/Thin Discharge Activity: Return to Normal Activity Call your doctor if you observe: Fever of 101 or Higher, Shortness of breath, Dizziness, Fainting spells, Chest pain Instructions: ED Anemia Iron Deficiency, Iron Supplements Additional Instructions: You have an appt with Dr. Colmenares scheduled for the 28 of February. Call the office to see if he plans on doing an endoscopy that day or if this is just for an office visit. Allergies/Adverse Reactions: Allergies No Known Allergies Allergy (Verified 05/12/18 23:32) Medications to take at Discharge Adalimumab [Humira Pen Crohn's-Uc-Hs] 40 mg SQ Q14D 05/13/18 Ferrous Sulfate 325 mg PO DAILY #30 tablet 02/18/19 Pantoprazole Sodium [Protonix] 40 mg PO DAILY #30 tablet 02/18/19 The following prescriptions were given: Ferrous Sulfate 325 mg PO DAILY #30 tablet Pantoprazole Sodium [Protonix] 40 mg PO DAILY #30 tablet Primary Care Physician: Brittney Juarez MD [Primary Care Provider] - Please follow up with your Primary Care Physician in: 7-10 days Test Results: Test results from this visit will be discussed in further detail at your follow- up appointment, if applicable. Please Follow Up With: Mikal Colmenares MD When: february 28 Proposed Discharge Date: 02/18/19
--- NOTE | 2019-02-18 17:22 | PCM.DC.SUM ---
Discharge Date and Diagnosis Date of Admission: 02/16/19 Date of Discharge: 02/18/19 - Primary Discharge Diagnosis Active and Suspected Problems (Last Updated 02/17/19 @ 01:05 by Renaldo Mckeon MD) Severe iron deficiency anemia secondary to chronic blood loss Hemoccult positive stool - Secondary Discharge Diagnosis Chronic Problems (Last Updated 02/17/19 @ 01:05 by Renaldo Mckeon MD) Iron deficiency (Chronic) Crohns disease (Chronic) Hospital Course and Treatment Imaging Results: Laboratory Tests 02/18/19 02/18/19 02/17/19 Range/Units 05:08 05:08 13:20 WBC 6.6 (4.4-11.0) K/mm3 RBC 4.13 L (4.6-6.2) M/mm3 Hgb 8.4 L 8.2 L (13.0-16.5) g/dl Hct 29.2 L 28.0 L (40-54) % MCV 70.7 L (80-94) fL MCH 20.3 L (27.0-32.0) pg MCHC 28.8 L (32-36) g/gl RDW 26.4 H (11.6-14.6) % RDW Differential 67.6 H (35.1-43.9) fl Plt Count 353 (150-450) K/mm3 MPV 8.7 (6.2-12.0) fl Immature Gran % (Auto) 0.300 (0.0-0.9) % Neut % (Auto) 65.1 (47-70) % Lymph % (Auto) 17.8 L (19-41) % Rosebud % (Auto) 14.3 H (0-10) % Eos % (Auto) 2.0 (0-5) % Baso % (Auto) 0.5 (0-1) % Absolute Neuts (auto) 4.3 (2.0-7.7) X10^3/uL Absolute Lymphs (auto) 1.18 (0.83-4.51) X10^3/ul Total Counted Not Reportable Nucleated RBC % 1.2 (0-5) % Differential Comment SCANNED Diff Path Review Reviewed Immature Plt Fraction (1.0-7.9) % Polychromasia 1+ Hypochromasia 3+ Anisocytosis 3+ Microcytosis 2+ Macrocytosis 2+ Tear Drop Cells RARE Ovalocytes 2+ Schistocytes 1+ Retic Count (0.5-1.5) % Absolute Retic 0.08 (0-5) 10^3/uL Immature Retic Fraction (3.00-15.90) % Retic Hgb Equivalent (30-35) pg Haptoglobin (34-200) mg/dL Sodium 142 (136-145) mmol/L Potassium 3.5 (3.5-5.1) mmol/L Chloride 110 H (98-107) mmol/L Carbon Dioxide 26.0 (21.0-32.0) mmol/L Anion Gap 6 (5-15) BUN 11 (7-18) mg/dL Creatinine 0.73 (0.70-1.30) mg/dL Estim Creat Clear Calc 137.94 ml/min Est GFR (MDRD) Af Amer 168 (>60) mL/min Est GFR (MDRD) Non-Af 139 (>60) mL/min BUN/Creatinine Ratio 15.0 (10-20) RATIO Glucose 85 (74-106) mg/dL Calcium 7.8 L (8.5-10.1) mg/dL Iron (65-175) ug/dL TIBC (250-450) ug/dL Iron Saturation (15.0-55.0) % Transferrin (200-370) mg/dL Ferritin (26-388) ng/mL Lactate Dehydrogenase (87-241) U/L Albumin (3.2-5.0) g/dL Vitamin B12 (211-911) pg/mL Folate (3.1-55.4) ng/mL Blood Type Antibody Screen Crossmatch 02/16/19 02/16/19 02/16/19 Range/Units 23:05 23:05 23:05 WBC (4.4-11.0) K/mm3 RBC (4.6-6.2) M/mm3 Hgb (13.0-16.5) g/dl Hct (40-54) % MCV (80-94) fL MCH (27.0-32.0) pg MCHC (32-36) g/gl RDW (11.6-14.6) % RDW Differential (35.1-43.9) fl Plt Count (150-450) K/mm3 MPV (6.2-12.0) fl Immature Gran % (Auto) (0.0-0.9) % Neut % (Auto) (47-70) % Lymph % (Auto) (19-41) % Rosebud % (Auto) (0-10) % Eos % (Auto) (0-5) % Baso % (Auto) (0-1) % Absolute Neuts (auto) (2.0-7.7) X10^3/uL Absolute Lymphs (auto) (0.83-4.51) X10^3/ul Total Counted Nucleated RBC % (0-5) % Differential Comment Diff Path Review Immature Plt Fraction 2.3 (1.0-7.9) % Polychromasia Hypochromasia Anisocytosis Microcytosis Macrocytosis Tear Drop Cells Ovalocytes Schistocytes Retic Count 3.49 H (0.5-1.5) % Absolute Retic (0-5) 10^3/uL Immature Retic Fraction 17.00 H (3.00-15.90) % Retic Hgb Equivalent 11.8 L (30-35) pg Haptoglobin (34-200) mg/dL Sodium (136-145) mmol/L Potassium (3.5-5.1) mmol/L Chloride (98-107) mmol/L Carbon Dioxide (21.0-32.0) mmol/L Anion Gap (5-15) BUN (7-18) mg/dL Creatinine (0.70-1.30) mg/dL Estim Creat Clear Calc ml/min Est GFR (MDRD) Af Amer (>60) mL/min Est GFR (MDRD) Non-Af (>60) mL/min BUN/Creatinine Ratio (10-20) RATIO Glucose (74-106) mg/dL Calcium (8.5-10.1) mg/dL Iron 10 L (65-175) ug/dL TIBC 295 (250-450) ug/dL Iron Saturation 3.4 L (15.0-55.0) % Transferrin (200-370) mg/dL Ferritin 1 L (26-388) ng/mL Lactate Dehydrogenase 117 (87-241) U/L Albumin (3.2-5.0) g/dL Vitamin B12 (211-911) pg/mL Folate 14.40 (3.1-55.4) ng/mL Blood Type Antibody Screen Crossmatch See Detail 02/16/19 02/16/19 02/16/19 Range/Units 23:05 23:05 23:05 WBC (4.4-11.0) K/mm3 RBC (4.6-6.2) M/mm3 Hgb (13.0-16.5) g/dl Hct (40-54) % MCV (80-94) fL MCH (27.0-32.0) pg MCHC (32-36) g/gl RDW (11.6-14.6) % RDW Differential (35.1-43.9) fl Plt Count (150-450) K/mm3 MPV (6.2-12.0) fl Immature Gran % (Auto) (0.0-0.9) % Neut % (Auto) (47-70) % Lymph % (Auto) (19-41) % Rosebud % (Auto) (0-10) % Eos % (Auto) (0-5) % Baso % (Auto) (0-1) % Absolute Neuts (auto) (2.0-7.7) X10^3/uL Absolute Lymphs (auto) (0.83-4.51) X10^3/ul Total Counted Nucleated RBC % (0-5) % Differential Comment Diff Path Review Immature Plt Fraction (1.0-7.9) % Polychromasia Hypochromasia Anisocytosis Microcytosis Macrocytosis Tear Drop Cells Ovalocytes Schistocytes Retic Count (0.5-1.5) % Absolute Retic (0-5) 10^3/uL Immature Retic Fraction (3.00-15.90) % Retic Hgb Equivalent (30-35) pg Haptoglobin (34-200) mg/dL Sodium 140 (136-145) mmol/L Potassium 3.3 L (3.5-5.1) mmol/L Chloride 106 (98-107) mmol/L Carbon Dioxide 27.0 (21.0-32.0) mmol/L Anion Gap 7 (5-15) BUN 9 (7-18) mg/dL Creatinine 0.79 (0.70-1.30) mg/dL Estim Creat Clear Calc 132.36 ml/min Est GFR (MDRD) Af Amer 153 (>60) mL/min Est GFR (MDRD) Non-Af 127 (>60) mL/min BUN/Creatinine Ratio 11.3 (10-20) RATIO Glucose 88 (74-106) mg/dL Calcium 7.9 L (8.5-10.1) mg/dL Iron (65-175) ug/dL TIBC (250-450) ug/dL Iron Saturation (15.0-55.0) % Transferrin (200-370) mg/dL Ferritin (26-388) ng/mL Lactate Dehydrogenase (87-241) U/L Albumin 2.9 L (3.2-5.0) g/dL Vitamin B12 (211-911) pg/mL Folate (3.1-55.4) ng/mL Blood Type O NEGATIVE Antibody Screen NEGATIVE Crossmatch See Detail 02/16/19 02/16/19 02/16/19 Range/Units 23:05 00:12 00:12 WBC 6.1 (4.4-11.0) K/mm3 RBC 3.00 L (4.6-6.2) M/mm3 Hgb 4.1 L* (13.0-16.5) g/dl Hct 18.5 L (40-54) % MCV 61.7 L (80-94) fL MCH 13.7 L (27.0-32.0) pg MCHC 22.2 L (32-36) g/gl RDW 23.5 H (11.6-14.6) % RDW Differential 48.4 H (35.1-43.9) fl Plt Count 622 H (150-450) K/mm3 MPV 9.1 (6.2-12.0) fl Immature Gran % (Auto) (0.0-0.9) % Neut % (Auto) (47-70) % Lymph % (Auto) (19-41) % Rosebud % (Auto) (0-10) % Eos % (Auto) (0-5) % Baso % (Auto) (0-1) % Absolute Neuts (auto) (2.0-7.7) X10^3/uL Absolute Lymphs (auto) (0.83-4.51) X10^3/ul Total Counted Nucleated RBC % (0-5) % Differential Comment SCANNED Diff Path Review Reviewed Immature Plt Fraction (1.0-7.9) % Polychromasia Hypochromasia Anisocytosis Microcytosis Macrocytosis Tear Drop Cells Ovalocytes Schistocytes Retic Count (0.5-1.5) % Absolute Retic (0-5) 10^3/uL Immature Retic Fraction (3.00-15.90) % Retic Hgb Equivalent (30-35) pg Haptoglobin 309 H (34-200) mg/dL Sodium (136-145) mmol/L Potassium (3.5-5.1) mmol/L Chloride (98-107) mmol/L Carbon Dioxide (21.0-32.0) mmol/L Anion Gap (5-15) BUN (7-18) mg/dL Creatinine (0.70-1.30) mg/dL Estim Creat Clear Calc ml/min Est GFR (MDRD) Af Amer (>60) mL/min Est GFR (MDRD) Non-Af (>60) mL/min BUN/Creatinine Ratio (10-20) RATIO Glucose (74-106) mg/dL Calcium (8.5-10.1) mg/dL Iron (65-175) ug/dL TIBC (250-450) ug/dL Iron Saturation (15.0-55.0) % Transferrin 241 (200-370) mg/dL Ferritin (26-388) ng/mL Lactate Dehydrogenase (87-241) U/L Albumin (3.2-5.0) g/dL Vitamin B12 (211-911) pg/mL Folate (3.1-55.4) ng/mL Blood Type Antibody Screen Crossmatch 02/16/19 Range/Units 00:12 WBC (4.4-11.0) K/mm3 RBC (4.6-6.2) M/mm3 Hgb (13.0-16.5) g/dl Hct (40-54) % MCV (80-94) fL MCH (27.0-32.0) pg MCHC (32-36) g/gl RDW (11.6-14.6) % RDW Differential (35.1-43.9) fl Plt Count (150-450) K/mm3 MPV (6.2-12.0) fl Immature Gran % (Auto) (0.0-0.9) % Neut % (Auto) (47-70) % Lymph % (Auto) (19-41) % Rosebud % (Auto) (0-10) % Eos % (Auto) (0-5) % Baso % (Auto) (0-1) % Absolute Neuts (auto) (2.0-7.7) X10^3/uL Absolute Lymphs (auto) (0.83-4.51) X10^3/ul Total Counted Nucleated RBC % (0-5) % Differential Comment Diff Path Review Immature Plt Fraction (1.0-7.9) % Polychromasia Hypochromasia Anisocytosis Microcytosis Macrocytosis Tear Drop Cells Ovalocytes Schistocytes Retic Count (0.5-1.5) % Absolute Retic (0-5) 10^3/uL Immature Retic Fraction (3.00-15.90) % Retic Hgb Equivalent (30-35) pg Haptoglobin (34-200) mg/dL Sodium (136-145) mmol/L Potassium (3.5-5.1) mmol/L Chloride (98-107) mmol/L Carbon Dioxide (21.0-32.0) mmol/L Anion Gap (5-15) BUN (7-18) mg/dL Creatinine (0.70-1.30) mg/dL Estim Creat Clear Calc ml/min Est GFR (MDRD) Af Amer (>60) mL/min Est GFR (MDRD) Non-Af (>60) mL/min BUN/Creatinine Ratio (10-20) RATIO Glucose (74-106) mg/dL Calcium (8.5-10.1) mg/dL Iron (65-175) ug/dL TIBC (250-450) ug/dL Iron Saturation (15.0-55.0) % Transferrin (200-370) mg/dL Ferritin (26-388) ng/mL Lactate Dehydrogenase (87-241) U/L Albumin (3.2-5.0) g/dL Vitamin B12 292 (211-911) pg/mL Folate (3.1-55.4) ng/mL Blood Type Antibody Screen Crossmatch Microbiology 02/17/19 05:20 Stool Stool Occult Blood (DANG) - Final Occult Blood Positive Dr. Frederick-General surgery Operations: None Procedures: None Summary of Care Provided: The patient is a 23-year-old male with a past medical history of Crohn's disease (on Humira and a steroid taper which ended last month) who presented to the emergency department at [facility] on 02/16/2019 because of a hemoglobin of 4.1 on outpatient labs ordered by Dr. Mikal Colmenares. Vital signs in the emergency department were temperature 98, pulse rate 97, blood pressure 126/66, respiratory rate 16 and he was 98% saturated on room air. Hemoglobin was 4.1 with an MCV of 61.7 and an RDW of 23.5. He had thrombocytosis with a platelet count of 622,000. WBC count was within normal limits. Ferritin was 1. He was admitted to the hospital and transfused with 4 units of packed red blood cells. Hemoccult stool was positive. He denied abdominal pain, nausea, vomiting or diarrhea. His last endoscopy was in 2015. Dr. Frederick was consulted and felt that the patient was stable for discharge and he would be better off having Dr. Colmenares perform an endoscopy since Dr. Colmenares chronically cares for him. Hemoglobin was stable at 8.4 following transfusion of 4 units of packed red blood cells. Vital signs were stable and he was asymptomatic. I was able to talk with Dr. Colmenares later in the day and he agreed with DC and an appt was made for February 28. The patient received 200 mg of iron sucrose intravenously prior to discharge. He was instructed to take ferrous sulfate 325 mg daily with vitamin C 500 mg to increase absorption. He was given a prescription for Protonix and will take 40 mg daily. He will follow-up with Dr. Juarez in 7-[address] Colmenares on February 28. PHYSICAL EXAM: GENERAL: alert, oriented X 3, Cooperative, NAD ORAL: moist mucosa, no mucosal lesions NECK: No JVD, supple, trachea midline LUNGS: CTA, symmetric chest expansion HEART: RRR, Normal S1 and S2, no rub, no gallop ABDOMEN: soft, NT, ND, BS present, no guarding with palpation EXTREMITIES: no edema, no cyanosis, no calf tenderness SKIN: No rashes, no breakdown NEUROLOGIC: no focal neurologic deficits PSYCH: appropriate, normal affect, pleasant This note was generated with [employer] software. It may contain incorrect words, spelling, and punctuation that were not noted in checking the note before signing. - Physical Exam Vital Signs Temp Pulse Resp BP Pulse Ox 98.1 F 64 18 117/74 98 02/18/19 10:04 02/18/19 10:04 02/18/19 10:04 02/18/19 10:04 02/18/19 10:04 Oxygen Flow Rate (L/min) 2 Oxygen Delivery Method Room Air Weight: 137 lb 12.623 oz Body Mass Index (BMI) 21.5 Intake and Output for Last 24 Hours 02/16/19 02/17/19 02/18/19 23:59 23:59 23:59 Intake Total 1660 / 1660 862 / 862 Balance 1660 / 1660 862 / 862 Microbiology Past 72 Hours 02/17/19 05:20 Stool Occult Blood (DANG) - Final Stool Occult Blood Positive Laboratory Tests Past 24 Hrs 02/16/19 02/18/19 02/18/19 00:12 05:08 05:08 WBC 6.6 RBC 4.13 L Hgb 8.4 L Hct 29.2 L MCV 70.7 L MCH 20.3 L MCHC 28.8 L RDW 26.4 H RDW Differential 67.6 H Plt Count 353 MPV 8.7 Immature Gran % (Auto) 0.300 Neut % (Auto) 65.1 Lymph % (Auto) 17.8 L Rosebud % (Auto) 14.3 H Eos % (Auto) 2.0 Baso % (Auto) 0.5 Absolute Neuts (auto) 4.3 Absolute Lymphs (auto) 1.18 Total Counted Not Reportable Nucleated RBC % 1.2 Differential Comment SCANNED Diff Path Review Reviewed Polychromasia 1+ Hypochromasia 3+ Anisocytosis 3+ Microcytosis 2+ Macrocytosis 2+ Tear Drop Cells RARE Ovalocytes 2+ Schistocytes 1+ Absolute Retic 0.08 Sodium 142 Potassium 3.5 Chloride 110 H Carbon Dioxide 26.0 Anion Gap 6 BUN 11 Creatinine 0.73 Estim Creat Clear Calc 137.94 Est GFR (MDRD) Af Amer 168 Est GFR (MDRD) Non-Af 139 BUN/Creatinine Ratio 15.0 Glucose 85 Calcium 7.8 L Vitamin B12 292 Discharge Activity: Return to Normal Activity Call your doctor if you observe: Fever of 101 or Higher, Shortness of breath, Dizziness, Fainting spells, Chest pain Home Medications: Medications to take at Discharge Adalimumab [Humira Pen Crohn's-Uc-Hs] 40 mg SQ Q14D 05/13/18 Ferrous Sulfate 325 mg PO DAILY #30 tablet 02/18/19 Pantoprazole Sodium [Protonix] 40 mg PO DAILY #30 tablet 02/18/19 Following Prescrptions Were Given to Patient: Ferrous Sulfate 325 mg PO DAILY #30 tablet Pantoprazole Sodium [Protonix] 40 mg PO DAILY #30 tablet Primary Care Physician: Brittney Juarez MD [Primary Care Provider] - Please follow up with your Primary Care Physician in: 7-10 days Please Follow Up With: Mikal Colmenares MD When: february 28 Patient Instructions: Iron Supplements, ED Anemia Iron Deficiency Minutes spent on discharge:: 30 Patient Condition:: Good Medical Necessity - Tobacco Use Smoking Status: Never smoker Tobacco Use: Non-smoker Meaningful Use Info Meaningful Use Diagnoses (Choose all that apply): None applicable Code Visit Inpatient E&M: 75675 [facility]
[2019-02-19 12:22] LABS: Pathologist Review Reviewed
[2019-02-19 14:44] LABS: Haptoglobin 309 mg/dL (34-200)
[2019-02-20 11:29] LABS: Transferrin 241 mg/dL (200-370)
== END 2019-02-18 17:50 | disposition home or self-care (01) | DRG 812 ==
LOC: ED 23:44 → PCU 02-17 00:36
PROVIDERS: Family Medicine; Admitting Provider Hospitalist; Emergency Provider Emergency Medicine; Family Provider Internal Medicine; PCP Internal Medicine; Visit Provider Internal Medicine
DX: D50.0 Iron deficiency anemia secondary to blood loss (chronic) (principal); K50.90 Crohn's disease, unspecified, without complications; E87.6 Hypokalemia; R19.5 Other fecal abnormalities; Z79.899 Other long term (current) drug therapy; D47.3 Essential (hemorrhagic) thrombocythemia
CPT/HCPCS: 36415; 36430; 80048; 82040; 82274; 82607; 82728; 82746; 83010; 83540; 83550; 83615; 84466; 85014; 85018; 85025; 85027; 85045; 86850; 86900; 86920; 86922; 99218; 99282; J1756; J7040; P9016; A4216; G0378